=== PATIENT | male | born 1985 | race Caucasian/White ===

== ENCOUNTER 2016-11-05 12:29 | Emergency (ER) | payer MEDICAID, OTHER ==
[~2016-11-05] VITALS: Ht 172.7 cm; Wt 81.8 kg
[2016-11-05 12:32] VITALS: BP 122/77; PULSE 102; RESP 18; O2SAT 96
--- NOTE | 2016-11-05 12:35 | ED.REPORT ---
HPI-Extremity Problem Upper Date of Service November 05, 2016 ED Provider: Juvenal Oglesby MD The patient is a 31 year old male who presents to the emergency department complaining of a right hand injury that occurred prior to arrival while he was at work. He was putting a truck tire onto a wheel when it fell and crushed his right pinky finger. He does not believe he crushed any other fingers. He denies any other injuries or trauma. The patient does complain of feeling sweaty and whoozy. His tetanus is up to date. Nursing Notes Stated Complaint: RT PINKY SMASHED Chief Complaint: Extremity Trauma Nursing Notes Reviewed: Yes Allergies: Uncoded Allergies: No Known Allergies (Allergy, Unknown, 12/05/04) Scheduled Amoxicillin/Clav K 875-125 mg (Augmentin 875-125 mg) 1 Each Tablet 1 TABLET PO BID Scheduled PRN Hydrocodone-Acetaminophen 5-325 mg (Hydrocodone-Acetaminophen 5-325 mg) 1 Each Tablet 1 TABLET PO Q4H PRN PRN For Pain General Time Seen by MD: 12:31 Chief Complaint Finger injury right 5 Hx Obtained From: Patient Arrived By: Walk-in Onset Occurred: Just prior to arrival Symptom Duration: Since onset Context: Occurred at: Workplace Location: : Finger right 5 Quality: Painful Severity: Current: Severe Severity: Maximum: Severe Immunizations: Tetanus up to date Recent Healthcare: No recent doctor visit, No recent hospitalization Similar Sx Previous: No Past Medical History Past Medical History none Family History Noncontributory Smoking History Unknown if Ever Smoker Social History Other Social History: Local resident Occupation Works at [employer] Ambulatory Status Independent Review of Systems Review of Systems Note: +right pinky finger deformity Musculoskeletal: Reports: Extremity pain, Extremity swelling Skin: Reports Diaphoresis Neurologic: Reports: Lightheaded Complete sys rev & neg: except as marked. Physical Exam Initial Vital Signs Vital Signs (First) Date Time Temp Pulse Resp B/P Pulse Ox O2 Delivery O2 Flow Rate FiO2 11/05/16 12:32 36.8 102 18 122/77 96 Initial VS: Reviewed Head / Eyes: Atraumatic, Normocephalic, PERRL ENT: Mucous membranes moist, Conjunctiva normal, No scleral icterus Neck: Supple, Non-tender, Full range of motion Respiratory: Breath sounds normal, Clear to auscultation, No respiratory distress Cardiovascular: Regular rate & rhythm, Heart sounds normal, Intact distal pulses Abdomen / GI: Soft, Non-tender, No guarding, No rebound, No distention Lower Extremities: Vascular intact, Neuro intact, No swelling, No tenderness Neurologic: Alert, Oriented, Nonfocal Psychiatric: Mood/affect normal, Behavior normal, Normal thought content General/Constitutional: Awake, Alert, Cooperative Appearance / Presentation: Positive: Pale Wrist / Hand: Neurologic intact, Vascular intact He has a crush injury to the distal aspect of his right pinky finger that extends through the nail bed. There is oozing blood present. Sensation is intact to the distal aspect of the pinky. There is a significant amount of grease on his hands so it is difficult to fully assess the wound. Skin: No rash Color / Condition: Positive: Diaphoresis present Interpretation & Diagnostics X-Ray Interpretation Xray Interpretation: IMPRESSION: Distal right fifth digit soft tissue defect. No fractures or radiopaque foreign bodies. Dictated by: Rober Metcalf M.D. on 11/05/2016 at 13:42 X-Ray Ordered: Hand right Interpretation / Wet Read by: Interpret - Radiologist Procedures Digital Nerve Block Time: 12:43 Procedure Performed by: ED physician Indication: Nailbed laceration repair Consent / Setup / Site Prep: Consent from patient, Time-out performed, Hand hygiene observed Skin Preparation Agent: Hibiclens - Chlorhexidine Digit Involved: Little finger right Digital Block Procedure: Lidocaine 2%, Needle insert - web space, Anesthesia obtained Post-Procedure / Complications: Antibiotic oint applied, Dressing applied, No complications, Condition improved, Tolerated procedure well, Patient stable Laceration Management Time: 13:30 Procedure Performed by: Allied health pract (Salvatore BOLAND) Consent / Setup / Site Prep: Consent from patient, Time-out performed, Hand hygiene observed Location of Wound: right little finger Local Anesthesia: Lidocaine 1% (5 mL additional after digital block), Lidocaine 2% (digital block) Digital Block: Yes Digit Involved: Little finger right Wound Preparation: Hibiclens - Chlorhexidine, Normal saline Debridement: None Irrigation: Copious Foreign Body Explore / Removal: Explored for foreign body Undermining / Margins: Flaps aligned Repair Skin: Nylon (5-0 ethilon) # Sutures - Skin: 7 Closure Layers: 1 Post-Procedure / Complications: Dressing applied, No complications, Condition improved, Tolerated procedure well, Patient stable Re-Eval/Medical Decision Med Decision/Clinical Course The patient is a 31 year old male who presents to the emergency department complaining of a right hand injury that occurred prior to arrival while he was at work. He was putting a truck tire onto a wheel when it fell and crushed his right pinky finger. He does not believe he crushed any other fingers. He denies any other injuries or trauma. The patient does complain of feeling sweaty and whoozy. His tetanus is up to date. In the emergency department the patient is afebrile stable vital signs and examination as above. He notably has laceration extending through the right distal aspect of the pinky finger transecting the nail bed. He is neurovascularly intact. No other associated injuries. Right hand x-ray shows distal right fifth digit soft tissue defect. No fractures or radiopaque foreign bodies. Digital block was performed as documented above. The hand, finger and wound were copiously irrigated and cleansed. The wound was sutured as documented above. The procedure was tolerated well. At this time, no evidence of neurovascular deficit no foreign bodies, no fractures. Proximal nail fold/nailbed remains intact. Finger splint applied along with bacitracin and sterile dressings. I have prescribed [place] for pain and prophylactic antibiotics given the extent of the wound and dirty nature of wound. He will follow-up with orthopedic surgery. Prior to discharge follow-up and return precautions were reviewed in detail with the patient who verbalized understanding and agreement with the plan. The patient was discharged in stable condition. Re-Evaluation/Progress : Time of Eval: 14:00 Re-Evaluation/Progress Note: Rechecked the patient. Discussed plan for discharge. All questions were addressed. Counseled Regarding: Diagnosis, Need for follow-up, When/why to return to ED Discharge & Departure Impression: Primary Impression: Nailbed laceration, finger Encounter type: initial encounter Qualified Code: S61.319A - Laceration without foreign body of unspecified finger with damage to nail, initial encounter Additional Impressions: Avulsion, finger tip Encounter type: initial encounter Qualified Code: S61.209A - Unspecified open wound of unspecified finger without damage to nail, initial encounter Crush injury to finger Encounter type: initial encounter Qualified Code: S67.10XA - Crushing injury of unspecified finger(s), initial encounter Disposition: Home Discharge Condition All VS Reviewed: Yes Condition: Stable Patient Instructions: Finger Laceration (ED) Additional Instructions: Thank you for seeking care at the emergency room. Our primary goal today in the ED was to evaluate you for any life-threatening conditions. Your evaluation was reassuring. Followup with the hand surgeon as directed. We have given you a referral to Dr. Bang. Call today to schedule an appointment. Take the antibiotics and pain medications as instructed. Use the finger splint as needed. You should return to the ED immediately if you develop increased pain or swelling, redness, warmth, drainage, fingertip discoloration, or any other concerning signs or symptoms. Thank you for letting us partake in your care today. Narcotic Pain Medicine You have been prescribed a narcotic for pain relief. These drugs are usually combined with acetaminophen (Tylenol#3, Percocet, Darvocet, Anexsia, Vicodin) or aspirin (Empirin#3, Percodan, Synalogs-DC) for increased effect. Narcotics act on the central nervous system to reduce pain; they also impair mental alertness and physical abilities. We advise you not to drink alcohol, drive a car, or operate dangerous equipment when you are taking these drugs. You can lessen stomach irritation from your medicine by taking it with meals or a full glass of water. Common side effects of narcotics are: Nausea and vomiting, heartburn, constipation, dizziness, sleepiness, and mood changes. If you have bothersome side effects or symptoms of an allergic reaction (itching, hives, rash), stop taking your medicine and call your doctor or the emergency room right away. Please keep your narcotic medicine well out of the reach of children. Referrals: Bob Bang MD Attestation Portions of this note were transcribed by Bailey Alvarado. I, Dr. Oglesby personally performed the history, physical exam and medical decision-making; I reviewed and confirmed the accuracy of the information in the transcribed note. Signed by: Malcolm Byrd, 11/05/2016 at 1415. copies to: Bob Bang MD, Beck O MD November 05, 2016 12:35 Bailey Alvarado November 05, 2016 12:44
[2016-11-05] MEDS ORDERED: Lidocaine 2% 50 mL Inj NERVEBLOCK ONE (12:40)
[2016-11-05] MEDS ORDERED: HYDR-4003 PO (13:17)
[2016-11-05] MEDS ORDERED: AMOX-366 PO (13:17)
--- NOTE | 2016-11-05 13:44 | DRSVH ---
PROCEDURE: X-RAY FINGERS, TWO VIEWS INDICATIONS: crushed finger pinky deformed TECHNIQUE: AP hand, 2 views of the right fifth finger(s) acquired. COMPARISON: None. FINDINGS: Bones: No fractures or dislocations. No suspicious bony lesions. Soft tissues: No suspicious soft tissue calcifications. Soft tissue defect in the distal right fift h digit. IMPRESSION: Distal right fifth digit soft tissue defect. No fractures or radiopaque foreign bodies. Dictated by: Rober Metcalf M.D. on 11/05/2016 at 13:42 Approved by: Rober Metcalf M.D. on 11/05/2016 at 13:43
== END 2016-11-05 14:40 | disposition home or self-care (01) ==
LOC: SED 12:29
DX: S67.196A Crushing injury of right little finger, initial encounter (principal); S61.316A Laceration without foreign body of right little finger with damage to nail, initial encounter; S61.306A Unspecified open wound of right little finger with damage to nail, initial encounter; W23.0XXA Caught, crushed, jammed, or pinched between moving objects, initial encounter; Y93.89 Activity, other specified; Y92.69 Other specified industrial and construction area as the place of occurrence of the external cause; Y99.0 Civilian activity done for income or pay